=== PATIENT | male | born 1965 | race Caucasian/White ===

== ENCOUNTER 2023-03-01 20:14 | Emergency (ER) | payer OTHER, SELFPAY ==
--- NOTE | ~2023-03-01 | XR_ITS ---
EXAMINATION: XR KNEE, LEFT CLINICAL INFORMATION: Fall. COMPARISON: None available. TECHNIQUE: Four views of the left knee. FINDINGS: Bones and soft tissues are normal. No fracture or joint effusion. Alignment is anatomic. Joint spaces are well maintained. No abnormal soft tissue calcification. XR/XR knee LT 4V IMPRESSION: Normal left knee.
[2023-03-01 20:23] VITALS: BP 139/59; PULSE 98; RESP 19; TEMP 36.6; O2SAT 97; BMI 28.9
--- NOTE | 2023-03-01 20:23 | ED.LOWEXIN ---
HPI - Extremity Injury (Lower) General Chief Complaint: Extremity Injury, Lower Stated Complaint: left knee injury at work Time Seen by Provider: 03/01/23 22:23 Source: patient Mode of arrival: ambulatory Limitations: no limitations History of Present Illness HPI Narrative: 57-year-old male presents with left knee pain. Injury happened approximately 3 weeks ago work. He slipped on oil. He immediately had knee pain. Knee pain has now been getting progressively worse. Is better with rest. He has also been using a brace which he had from a previous knee injury. The pain is radiating proximally and slightly distally. There is no joint swelling. There is no numbness or tingling. There are no additional injuries. Today, patient has been unable to bear weight on his left knee. Related Data Previous Rx's Medication Instructions Recorded meloxicam 15 mg tablet 15 mg PO DAILY #20 tabs 03/01/23 Allergies Allergy/AdvReac Type Severity Reaction Status Date / Time No Known Allergies Allergy Verified 03/01/23 20:22 Review of Systems Review of Systems: CONSTITUTIONAL: Denies weight loss, fever and chills. HEENT: Denies changes in vision and hearing. RESPIRATORY: Denies SOB and cough. CV: Denies palpitations no CP. GI: Denies abdominal pain, nausea, vomiting and diarrhea. : Denies dysuria and urinary frequency. MSK: Positive myalgia and joint pain. SKIN: Denies rash and pruritus. NEUROLOGICAL: Denies headache and syncope. PSYCHIATRIC: Denies recent changes in mood. Denies anxiety and depression. All other ROS are negative unless [facility] Social History Social History Alcohol intake: never Use of substances other than those prescribed or required for medical reasons: No Physical Exam Vital Signs: Vital Signs: Last Vital Signs Temp 97.9 F 03/01/23 20:23 Pulse 98 03/01/23 20:23 Resp 19 03/01/23 20:23 BP 150/69 H 03/01/23 22:17 Pulse Ox 97 03/01/23 20:23 O2 Del Method Room Air 03/01/23 20:23 BMI result Body Mass Index 28.9 GEN: Well developed, no acute distress, alert, oriented HEENT: Normocephalic, atraumatic, normal external ears, nose appears normal Eyes: Normal to appearance Neck: Supple, no lymphadenopathy Respiratory: Talks in complete sentences, no respiratory distress Extremities: No clubbing cyanosis or edema, no tenderness, joint no joint effusion, negative anterior posterior drawer sign Neurologic: No focal neurologic deficits, cranial nerves 2-12 intact, gait normal Skin: No rash Course Course Course Narrative: RME - 57 yo male presents to the ER for evaluation of left knee pain after he heard a pop while walking up stairs today at home. Unable to bear weight since. Had recently sprained the same knee 2-3 weeks ago at work after he slipped on oil. Plan: XR knee Reevaluation(s) Reevaluation #1: X-rays negative for acute fracture. Patient will be referred to Occupational Health. Time: 22:49 Medical Decision Making Medical Decision Making MDM Narrative: 57-year-old male presents with left knee pain. Examination is benign. There is no joint effusion. X-ray was ordered in identified no acute fracture. Patient likely has either internal knee derangement such as ligamentous injury or knee sprain. However refer the patient to Occupational Health since this is a work related injury. Patient will start Tylenol and Mobic. Patient was also counseled regarding the use of capsaicin cream, icing etc.. Differential Diagnosis Differential Diagnoses: The differential diagnosis associated with the presentation includes (Sprain, strain, fracture, ligamentous issue, internal knee derangement, meniscal tear) Independent Interpretation I performed an independent interpretation of an: Plain X-Ray (Left knee: No acute fracture) Independent Historian Clinical information obtained from an independent historian. History obtained from or confirmed by: Spouse Tests considered The following testing was considered but not selected: CT, MRI Prescription Management I considered prescription management with: Pain Medication Discharge Plan Discharge Clinical Impression: Left knee sprain, Elevated blood pressure reading Patient Disposition: Home, Self-Care Instructions: Knee Sprain (ED), Crutch Instructions (ED) Prescriptions: New meloxicam 15 mg tablet 15 mg PO DAILY Qty: 20 0RF Referrals: [facility] [Provider Group] - 2 days Physician,Unknown J [Primary Care Provider] - (Follow-up with primary care provider for repeat blood pressure check.)
[2023-03-01 22:17] VITALS: BP 150/69
--- NOTE | 2023-03-01 22:31 | PC.NURSE ---
Assumed care of pt. Pt sitting on stretcher, spouse at bedside. Pt endorsing acute on chronic L knee issues, work related. MD at bedside for evaluation. XR completed, WCTM,.
== END 2023-03-01 22:59 | disposition home or self-care (01) ==
LOC: HO.ED 22:55
PROVIDERS: Emergency Provider Emergency Medicine
DX: S83.92XA Sprain of unspecified site of left knee, initial encounter (principal); X50.9XXA Other and unspecified overexertion or strenuous movements or postures, initial encounter; Y93.89 Activity, other specified; Y92.59 Other trade areas as the place of occurrence of the external cause; Y99.0 Civilian activity done for income or pay
CPT/HCPCS: 73564; 99283; 99284

== ENCOUNTER → 2023-03-03 10:28 | Outpatient (BNVA) | payer OTHER, SELFPAY | PROVIDERS: Visit Provider Physician Assistant | DX: M23.92 Unspecified internal derangement of left knee (principal) | CPT/HCPCS: 99204 ==

== ENCOUNTER → 2023-03-11 10:50 | Outpatient (BNVA) | payer OTHER, SELFPAY | PROVIDERS: Visit Provider Physician Assistant | DX: M23.92 Unspecified internal derangement of left knee (principal) | CPT/HCPCS: 99214 ==

== ENCOUNTER 2023-03-30 07:27 | Outpatient (REF) | payer OTHER, SELFPAY ==
--- NOTE | ~2023-03-30 | MR_ITS ---
EXAMINATION: MR KNEE WITHOUT CONTRAST, LEFT CLINICAL INFORMATION: Slipped, knee gave way, persistent pain. COMPARISON: X-ray of the left knee February 2023. TECHNIQUE: MRI of the knee without contrast was performed using routine sequences on a high-field scanner. FINDINGS: MENISCI: Medial Meniscus: There is heterogeneous increased signal within the posterior root of the medial meniscus most likely reflects meniscal tear. Lateral Meniscus: Intact. LIGAMENTS: Cruciate: Intact. Collateral: Intact. EXTENSOR MECHANISM: Intact. ARTICULAR CARTILAGE/BONE: Patellofemoral Compartment: Minimal surface irregularity of the cartilage of the medial facet of the patella. Trochlear cartilage normal. Overall mild patellofemoral arthrosis. Medial Compartment: There is mild surface irregularity and cartilage heterogeneity and cartilage thinning in the weightbearing portion of the femoral articular surface. There are small subchondral cysts. There is some concomitant cartilage heterogeneity along the posterior medial periphery of the tibial articular surface with some reactive subchondral edema. Overall findings indicative of mild patellofemoral arthrosis. Lateral Compartment: Normal. JOINT FLUID AND BURSAE: There is a mild joint effusion and small Lee's cyst. MR/MR knee LT wo con IMPRESSION: 1. Tear of the posterior root of the medial meniscus. 2. Mild patellofemoral arthrosis. 3. Mild medial compartment arthrosis. Mild joint effusion and small Lee's cyst.
== END 2023-03-30 07:28 | disposition home or self-care (01) ==
LOC: HO.MRI 07:27
PROVIDERS: Visit Provider Internal Medicine
DX: M25.562 Pain in left knee (principal)
CPT/HCPCS: 73721

== ENCOUNTER → 2023-04-02 13:37 | Outpatient (BNVA) | payer OTHER, SELFPAY | PROVIDERS: Visit Provider Physician Assistant | DX: M23.304 Other meniscus derangements, unspecified medial meniscus, left knee (principal) | CPT/HCPCS: 99214 ==

== ENCOUNTER 2023-04-08 14:00 | Outpatient (RCR) | payer OTHER, BC, SELFPAY ==
--- NOTE | 2023-03-11 10:56 | MHC.PT.EP ---
[facility] [place] Office [place] Office [place] Office [address] Alondra Cabral [address] [phone] F: [phone] F: [phone] F: [phone] F: [phone] Physical Therapy Plan of Care Date of Evaluation: Date of Surgery: N/A Diagnosis: L knee derangement Assessment: Pt is a pleasant and motivated 57yo M who presents to PT with L knee pain after slipping on oil at work on 02/16/23. He presents to PT with current impairments in pain, decreased LLE strength, decreased stability, and impaired mechanics. He had mild pain with valgus stress test on LLE. He is limited functionally by pivoting, squatting, making sharp turns, walking on uneven surfaces, and working. He is an excellent candidate for skilled PT in order to address current impairments to facilitate return to PLOF. He is recommended to be seen 2x/week for 4 weeks and will be reassessed at that time. Frequency and Duration: The patient will be seen 2x/week for 4 weeks Short Term Goals: Pt will be I with HEP to promote self management of symptoms Pt will improve L quad length symmetrical to R Bottle Caser Goals: Pt will ambulate on even and uneven surfaces with minimal to no discomfort Pt will demonstrate ability to squat and sweet pickle maker 40# object with proper mechanics with minimal to no discomfort Pt will demonstrate improvements in function as evidenced by statistically significant improvement in LEFI outcome measure Treatment Plan: Modalities to reduce pain, spasms and effusion. Manual therapy to restore motion and function. Therapeutic exercise to improve strength and flexibility. Neuromuscular re-education for posture and balance. Therapeutic activities to return to functional activities of daily living. Electronically signed by: Savanah Garcia, PT, DPT Please sign and return to therapist. Thank you for your referral.
--- NOTE | 2023-06-15 16:33 | MHC.PT.DC ---
[facility] [place] Office [place] Office [place] Office [address] Alondra Cabral [address] [phone] F: [phone] F: [phone] F: [phone] F: [phone] Physical Therapy Discharge Report Diagnosis: L knee derangement Date of Surgery: N/A Date of Evaluation: 03/11/23 Date of Discharge: 06/15/23 Treatments to Date: 7 Cancellations to Date: No Shows to Date: Discharge Status: Discharge Summary: Pt was seen for skilled PT from 03/11/23-04/08/23. His last attended appointment was 04/08/23. He was making progress with skilled PT. He had a decrease in pain and improved his score on LEFI outcome measure from 58/80 on initial PT evaluation to 67/80 on 04/08/23. He is being D/C from skilled PT as he has not attended or called to schedule in > 30 days. Pt current level of function unknown at this time. Electronically signed by: Savanah Garcia, PT, DPT Please sign and return to therapist. Thank you for your referral.
== END 2023-06-15 16:33 | disposition home or self-care (01) ==
LOC: HO.PT 14:00
PROVIDERS: Visit Provider Physician Assistant
DX: M23.92 Unspecified internal derangement of left knee (principal)
CPT/HCPCS: 97110; 97112; 97161; 97530